=== PATIENT | female | born 1935 | race Caucasian/White ===

== ENCOUNTER 2016-08-24 17:00 | Emergency (ER) | payer OTHER, BC ==
[2016-08-24 17:14] VITALS: RESP 18
--- NOTE | 2016-08-24 17:30 | EDPHY ---
H & P Time Seen by Provider: 08/24/16 17:16 HPI/ROS: This patient sustained in a minor leg abrasion or wound from gardening she thinks but does recall a specific injury to 3 days ago. Over the past 24 hours the area has become red and is causing mild burning discomfort and slight itching. She also notes a small amount of discharge today. She is concerned about infection came in for evaluation. She applied bacitracin to earlier in the day. No exacerbating factors are noted. ROS: Constitutional: No fevers or fatigue HEENT: No symptoms Pulmonary: No complaints Cardiovascular: No significant swelling to the affected extremity Integumentary: No urticaria or other skin rash. Neuro: No numbness tingling or other symptoms. 7 point ROS is otherwise negative Past Medical/Surgical History: Hypertension otherwise healthy Smoking Status: Never smoked Physical Exam: Physical Exam Vital signs are normal Except for hypertension General: pleasant elderly female appears younger than her stated ageNo acute distress Eyes: Pupils equal and react to light. Extraocular motions are intact. Lungs: No respiratory distress. Cardiac: Brisk capillary refill is intact throughout. Pulses are 2+ and symmetric in the affected extremity. Skin: patient has what appears to be a superficial puncture wound/abrasion to the right leg anteriorly with 3 cm diameter region of erythema warmth to touch surrounding it and 1 bulla that is weeping serous fluid that is cultured. There is warmth to touch. No fluctuance. No posterior calf swelling. Neuro: Alert and oriented x3 with no sensorimotor deficits In the affected extremity. Initial differential diagnosis: Hymenoptera sting, superficial wound with associated wound infection /cellulitis Constitutional: Initial Vital Signs Temperature (C) 37 C 08/24/16 17:12 Heart Rate 89 08/24/16 17:12 Respiratory Rate 18 08/24/16 17:12 Blood Pressure 177/111 H 08/24/16 17:12 O2 Sat (%) 94 08/24/16 17:12 O2 Delivery Mode Room Air Allergies/Adverse Reactions: No Known Allergies Allergy (Verified 08/24/16 17:12) Home Medications: Medication Instructions Recorded Hydrochlorothiazide 11/02/09 Cephalexin [Keflex (*)] 500 mg PO TID #30 cap 08/24/16 MDM/Departure - MDM ED Course/Re-evaluation: I obtained a wound culture from the weeping bulla. Our tech clean the wound with warm soapy water. I counseled her regarding wound infection. Will cover her with Keflex. She has no evidence of sepsis or other concerning findings. While she has hypertension here today she has no evidence of end-organ injury - Depart Disposition: Home, Routine, Self-Care Clinical Impression: Wound infection Condition: Good Instructions: Cellulitis (ED) Additional Instructions: Diagnosis: Wound infection / cellulitis Plan: Clean wound daily with warm soapy water Apply warm packs to 3 times a day until symptoms resolve Tylenol for discomfort if needed Keflex antibiotic as prescribed DJD probiotic or yogurt while on the Keflex to prevent diarrhea Return for any significant worsening despite the treatment plan. Prescriptions: Cephalexin [Keflex (*)] 500 mg PO TID #30 cap Referrals: Iona Sauer MD [Primary Care Provider] - As per Instructions
[2016-08-24 17:53] VITALS: BP 154/67; PULSE 74; TEMP 98.2; O2SAT 95
== END 2016-08-24 17:53 | disposition home or self-care (01) ==
LOC: CED 17:00
DX: L08.9 Local infection of the skin and subcutaneous tissue, unspecified (principal); I10 Essential (primary) hypertension

== ENCOUNTER → 2018-07-13 | Outpatient (CLI) | payer OTHER, BC | LOC: FIMAGING 10:30 | PROVIDERS: ATTEND Family Medicine | DX: Z13.820 Encounter for screening for osteoporosis (principal); M85.89 Other specified disorders of bone density and structure, multiple sites; Z78.0 Asymptomatic menopausal state ==

== ENCOUNTER → 2018-08-23 | Outpatient (CLI) | payer OTHER, BC | LOC: FIMAGING 07:51 ==